=== PATIENT | female | born 1940 | race Caucasian/White ===

== ENCOUNTER 2019-02-17 12:29 | Emergency (ER) | payer MEDICARE, OTHER ==
--- NOTE | 2019-02-17 13:23 | RAD ---
LEFT KNEE FOUR VIEWS: HISTORY: Left knee pain. FINDINGS: Degenerative changes are present. No acute fracture, dislocation or bony destruction is identified. POS: OFF
--- NOTE | 2019-02-17 13:25 | RAD ---
Left wrist 3 views HISTORY: Fall. Left wrist injury. FINDINGS: There is three-quarter shaft width posterior displacement of the distal major fragment of a n extremely comminuted multi part distal radial fracture. Resultant dorsal tilt. Significant impaction. Loss of inclination. Intra-articular component to the distal radius with 3 mm distraction of fragments. Mildly displaced oblique fracture through the medial margin of the distal ulna, including the ulnar styloid. Scaphoid waist is intact. Mild degenerative changes of the distal carpal row. IMPRESSION: Comminuted intra-articular distal left radial fracture with dorsal tilt. Associated dista l ulnar fracture.
--- NOTE | 2019-02-17 14:10 | CT ---
Exam: Head CT without contrast HISTORY: Pain. Trauma. COMPARISON: none FINDINGS: Hemorrhage: No intraparenchymal hemorrhage or extra-axial hematoma. Brain parenchyma: Cortical vela-white matter differentiation is preserved. No mass effect or midline shift. Basilar cisterns are patent.White matter hypodensities due to chronic small vessel ischemic change. Ventricular system: Ventricles and sulci are patent and symmetric. Calvarium: Intact. Sinuses and mastoid air cells: Minimal opacification posterior left ethmoid air cell. Adequate mastoi d air cell aeration. IMPRESSION: 1. No intracranial post traumatic sequelae 2. Age-appropriate atrophy. White matter hypodensities due to chronic small vessel ischemic change
--- NOTE | 2019-02-17 14:21 | CT ---
CT CERVICAL SPINE WITHOUT CONTRAST: HISTORY: Neck pain status post fall. FINDINGS: The bones appear demineralized. There is severe degenerative disk narrowing at C4-C5, C5-C6 and C6-C7 . There are also moderate degenerative facet changes present. There is a mild degree of right-sided f oraminal narrowing at C3-C4 and at C4-C5. The canal is mildly stenotic at C5-C6 with mild right-sided foraminal narrowing. There is also mild canal stenosis at C6-C7. There is no CT evidence for fractur e. The lung apices are clear. IMPRESSION: No CT evidence of fracture of the cervical spine. POS: OFF
[2019-02-17] MEDS ORDERED: Ketamine 50 MG/ML (10ML VIAL) ONE (16:23)
--- NOTE | 2019-02-17 17:22 | RAD ---
XR Wrist Lt 2 View History: Postreduction Comparison: Radiograph same day Findings: Satisfactory alignment postreduction intra-articular distal radius fracture and ulnar fract ure. Impression: Satisfactory alignment postreduction
[2019-02-17] MEDS ORDERED: Acetaminophen 500 MG TAB ONE (17:49)
== END 2019-02-17 18:24 | disposition home or self-care (01) ==
LOC: ERS 12:29
DX: S52.572A Other intraarticular fracture of lower end of left radius, initial encounter for closed fracture (principal); I11.0 Hypertensive heart disease with heart failure; I50.9 Heart failure, unspecified; Z87.891 Personal history of nicotine dependence; Z79.899 Other long term (current) drug therapy; Z79.51 Long term (current) use of inhaled steroids; W19.XXXA Unspecified fall, initial encounter
CPT/HCPCS: 25605; 70450; 72125; 93005; 99156

== ENCOUNTER 2019-02-26 10:39 | Day surgery (SDC) | payer MEDICARE, OTHER ==
[2019-02-26] MEDS ORDERED: Fentanyl 100 MCG/2 ML VIAL ONE ×3 (12:26→13:05)
[2019-02-26] MEDS ORDERED: Midazolam HCl 2 mg/2 ml Vial ONE (13:05)
--- NOTE | 2019-02-26 14:35 | RAD ---
EXAM: 2 views of the left wrist HISTORY: Left distal radius fracture status post ORIF COMPARISON: 02/17/2019 FINDINGS: 2 limited intraoperative fluoroscopic views of the left wrist shows the patient is status p ost ORIF of the distal radius fracture with a plate and screws. There is better alignment of the wrist joint. IMPRESSION: Status post ORIF of distal radius fracture without evidence of complication.
--- NOTE | 2019-02-26 17:57 | OP ---
DATE OF PROCEDURE: 02/26/2019 PREOPERATIVE DIAGNOSIS: Left comminuted intra-articular distal radius fracture (greater than three fragments). POSTOPERATIVE DIAGNOSIS: Left comminuted intra-articular distal radius fracture (greater than three fragments). SURGICAL PROCEDURE: Open reduction and internal fixation of left distal radius. ANESTHESIA: General. GROUP CARE WORKER: Shubham Chahal PA-C TOURNIQUET TIME: Approximately 50 minutes at 250 mmHg. IMPLANTS: Synthes 2.4 mm variable angle LCP 2 column volar distal radial plate. COMPLICATIONS: None. DRAINS: None. SPECIMEN: None. OUTCOME: Near-anatomic alignment. INDICATIONS: Ms. Garcia is a pleasant 78-year-old lady, status post ground level fall landing on her outstretched left wrist sustaining a comminuted and intra-articular distal radius fracture. Given the intra-articular extension and the dorsal comminution, we have discussed the potential benefits of open reduction and internal fixation to lessen any chance of articular surface incongruity or displacement of fracture. The patient appears to understand and does wish to proceed. Informed consent has been obtained. DESCRIPTION OF PROCEDURE: The patient was brought to the operating room after induction of regional anesthesia. Next, a sterile prep and drape were performed in the left upper extremity. The limb was then exsanguinated with Esmarch bandage and tourniquet inflated to 250 mmHg. Next, a volar radial incision was made at the distal radius. This was followed by blunt dissection between the tendons of the brachioradialis and the flexor carpi radialis. Next, the dissection was carried down to the level of the pronator quadratus. This was released off the radial border of the radius and reflected to the midline. At this point, the fracture could be identified. A curette was used to remove some of the fracture hematoma. Next, an open reduction was performed with the fracture achieving a near-anatomic alignment as checked on both AP and lateral C-arm imaging. Next, a volar two column Synthes plate was applied to the volar aspect of the wrist. This was held in place with a K-wire and then a cortical screw placed in the longitudinal limb of the plate affixing the plate to the distal radius. Again, C-arm imaging was used to confirm appropriate alignment of the plate. Next, a total of 4 locking screws were placed through the horizontal limb of the plate capturing the distal fragment in a near-anatomic alignment. This was then followed by insertion of two additional cortical screws proximal to the fracture. At the completion of this, final AP and lateral C-arm images were obtained that showed excellent alignment of the fracture and appropriate positioning of hardware. The wound was then irrigated with bulb syringe and closed in layers with 0 Vicryl for fascial closure followed by 2-0 Vicryl and nylon as a final skin closure. She was then placed in a short arm fiberglass splint and then, tourniquet was let down. She was transferred to recovery room in stable condition. There were no complications. She tolerated the procedure well. Job ID: [id number]
== END 2019-02-26 15:45 | disposition home or self-care (01) ==
LOC: SDC 10:39
PROVIDERS: ATTEND Orthopaedic Surgery
PROC: 0PSJ04Z Reposition Left Radius with Internal Fixation Device, Open Approach (ICD-10-PCS; principal; 2019-02-26)
PROC: 3E0T3BZ Introduction of Anesthetic Agent into Peripheral Nerves and Plexi, Percutaneous Approach (ICD-10-PCS; 2019-02-26)
DX: S52.572A Other intraarticular fracture of lower end of left radius, initial encounter for closed fracture (principal); I11.0 Hypertensive heart disease with heart failure; I50.9 Heart failure, unspecified; J44.9 Chronic obstructive pulmonary disease, unspecified; M19.90 Unspecified osteoarthritis, unspecified site; G89.18 Other acute postprocedural pain; Z79.899 Other long term (current) drug therapy; Z88.2 Allergy status to sulfonamides; Z88.5 Allergy status to narcotic agent; W18.30XA Fall on same level, unspecified, initial encounter; X50.1XXA Overexertion from prolonged static or awkward postures, initial encounter
CPT/HCPCS: 76000; 93005; 93010; J0690; J2250; J3010

== ENCOUNTER 2020-04-22 20:38 | Emergency (ER) | payer MEDICARE, OTHER ==
--- NOTE | 2020-04-22 22:02 | RAD ---
Chest one view HISTORY: Dyspnea. COVID pneumonia. COMPARISON: 12/23/2019. FINDINGS: Cardiac silhouette is magnified by projection. Pulmonary vasculature is unremarkable. Mediastinum is midline with aortic calcification. Dystrophic calcification running obliquely across t he medial aspect of the right upper mediastinum is unchanged. No lobar consolidation or evidence of pneumothorax. IMPRESSION : Atherosclerosis. Chronic-type findings are stable. No active cardiopulmonary abnormalities are demonstrated.
[2020-04-22 22:07] LABS: Hemoglobin 11.2 g/dL (12.0-16.0); Mean Corpuscular HGB CONC 31.5 g/dL (32.0-36.0); Mean Corpuscular Hemoglobin 27.3 pg (27.0-31.0); Mean Corpuscular Volume 86.8 fL (78.0-98.0); Mean Platelet Volume 8.2 fL (7.4-10.4); Platelet Count 175 thou/uL (130-400); RBC Distribution Width 13.2 % (11.5-14.5); Red Blood Cell (RBC) Count 4.12 mill/uL (4.20-5.40); White Blood Cell (WBC) Count 6.6 thou/uL (4.8-10.8)
[2020-04-22 22:25] LABS: Band 8 % (5-11); Hypochromia SLIGHT = 6-15 cells (100X) (0-5/hpf); Lymphocytes 13 % (21-51); MDiff Complete? YES; Monocytes 17 % (0-10); Neutrophil 62 % (42-75); Platelet Morphology Comment Appears Adequate
[2020-04-22 22:28] LABS: ALT (SGPT) 32 U/L (8-55); AST (SGOT) 31 U/L (5-34); Albumin 3.6 g/dL (3.4-4.8); Alkaline Phosphatase 66 U/L (40-110); Anion Gap 13 mmol/L (10-20); BUN (Urea Nitrogen) 19 mg/dL (9.8-20.1); Bilirubin, Total 0.2 mg/dL (0.2-1.2); Calc. Creatinine Clearance 0 mL/min (70-130); Calcium 8.8 mg/dL (7.8-10.44); Carbon Dioxide 34 mmol/L (23-31); Chloride 100 mmol/L (98-107); Globulin 2.5 g/dL (2.4-3.5); Glucose 101 mg/dL (83-110); Potassium 3.6 mmol/L (3.5-5.1); Protein, Total 6.1 g/dL (6.0-8.3); Sodium 143 mmol/L (136-145)
== END 2020-04-22 23:23 | disposition home or self-care (01) ==
LOC: ERS 20:38
DX: R06.00 Dyspnea, unspecified (principal); I11.0 Hypertensive heart disease with heart failure; I50.9 Heart failure, unspecified; J44.9 Chronic obstructive pulmonary disease, unspecified
CPT/HCPCS: 71045; 80053; 83880; 84484; 85025; 93005

== ENCOUNTER 2020-08-18 09:38 | Outpatient (CLI) | payer MEDICARE, OTHER | END 2020-08-18 09:39 | disposition home or self-care (01) | LOC: BICRAD 09:38 | PROVIDERS: ATTEND Internal Medicine Critical Care Medicine | DX: R06.00 Dyspnea, unspecified (principal) | CPT/HCPCS: 71046 ==

== ENCOUNTER 2021-03-01 09:18 | Outpatient (CLI) | payer MEDICARE, OTHER | END 2021-03-01 09:19 | disposition home or self-care (01) | LOC: RAD 09:18 | PROVIDERS: ATTEND Internal Medicine Critical Care Medicine | DX: R06.00 Dyspnea, unspecified (principal) | CPT/HCPCS: 71046 ==

== ENCOUNTER 2021-03-09 17:00 | Outpatient (CLI) | payer MEDICARE, OTHER | END 2021-03-09 17:01 | disposition home or self-care (01) | LOC: SLEEPLAB 17:00 | PROVIDERS: ATTEND Internal Medicine Critical Care Medicine | DX: G47.33 Obstructive sleep apnea (adult) (pediatric) (principal); E66.9 Obesity, unspecified; R06.83 Snoring | CPT/HCPCS: 95806 ==

== ENCOUNTER 2021-04-18 09:27 | Inpatient (IN) | payer MEDICARE, OTHER ==
[2021-04-18 10:42] LABS: #Eosinphils 0.1 thou/uL (0.0-0.7); #Monocytes 1.1 thou/uL (0.11-0.59); %Basophils 0.1 % (0.0-1.0); %Eosinophils 0.6 % (0.0-10.0); %Lymphocytes 7.9 % (21.0-51.0); %Monocytes 8.6 % (0.0-10.0); %Neutrophils 82.8 % (42.0-75.0); Hemoglobin 11.9 g/dL (12.0-16.0); Mean Corpuscular HGB CONC 30.3 g/dL (32.0-36.0); Mean Corpuscular Hemoglobin 26.2 pg (27.0-31.0); Mean Corpuscular Volume 86.6 fL (78.0-98.0); Mean Platelet Volume 7.7 fL (7.4-10.4); Platelet Count 194 thou/uL (130-400); RBC Distribution Width 13.8 % (11.5-14.5); Red Blood Cell (RBC) Count 4.52 mill/uL (4.20-5.40); White Blood Cell (WBC) Count 13.3 thou/uL (4.8-10.8)
[2021-04-18 11:08] LABS: ALT (SGPT) 14 U/L (8-55); AST (SGOT) 16 U/L (5-34); Albumin 3.8 g/dL (3.4-4.8); Alkaline Phosphatase 59 U/L (40-110); Anion Gap 11 mmol/L (10-20); BUN (Urea Nitrogen) 15 mg/dL (9.8-20.1); Bilirubin, Total 0.4 mg/dL (0.2-1.2); CK (CPK) 97 U/L (29-168); Calc. Creatinine Clearance 0 mL/min (70-130); Calcium 9.4 mg/dL (7.8-10.44); Carbon Dioxide 36 mmol/L (23-31); Chloride 100 mmol/L (98-107); Globulin 2.7 g/dL (2.4-3.5); Glucose 88 mg/dL (83-110); Potassium 3.6 mmol/L (3.5-5.1); Protein, Total 6.5 g/dL (5.8-8.1); Sodium 143 mmol/L (136-145)
[2021-04-18] MEDS ORDERED: Albuterol Sulfate 2.5 mg/0.5 ml Neb ONE (14:55)
[2021-04-18] MEDS ORDERED: Albuterol Sulfate 1.25 MG/3 ML NEB ONE ×2 (14:58→19:24)
[2021-04-18] MEDS ORDERED: Acetaminophen 650 MG Suppository PR PRN (20:19)
[2021-04-18] MEDS ORDERED: Ondansetron PF 4 MG/2 ML Vial IVP PRN (20:19)
[2021-04-18] MEDS ORDERED: Ondansetron ODT 4 MG TAB PO PRN (20:19)
[2021-04-18] MEDS ORDERED: Albuterol Sulfate 2.5 mg/3 ml Neb NEB PRN (20:42)
[2021-04-18] MEDS: Montelukast Sodium 10 mg Tablet PO SCH (21:23)
[2021-04-18] MEDS: hydrALAZINE 25 MG TAB PO SCH (21:23)
[2021-04-18 21:36] VITALS: BMI 32.9
[2021-04-19] MEDS ORDERED: diphenhydrAMINE 25 MG CAP PO PRN (01:49)
[2021-04-19] MEDS ORDERED: hydrALAZINE 20 MG/ML VIAL SLOW IVP PRN (05:43)
[2021-04-19] MEDS: Budesonide 0.5 MG/2 ML NEB NEB SCH ×2 (06:45→19:03)
[2021-04-19] MEDS: hydrALAZINE 25 MG TAB PO SCH ×2 (08:33→20:59)
[2021-04-19] MEDS: Potassium Chloride 10 MEQ TAB PO SCH (08:33)
[2021-04-19] MEDS: Furosemide 20 MG TAB PO SCH (08:34)
[2021-04-19] MEDS: Enoxaparin Sodium 40 MG/0.4 ML SYRINGE SC SCH (08:34)
[2021-04-19] MEDS: Ascorbic Acid 500 mg Chewable Tablet PO SCH (08:43)
[2021-04-19] MEDS: Lisinopril 20 MG TAB PO SCH (08:44)
[2021-04-19] MEDS: Cyanocobalamin (Vitamin B-12) 1,000 MCG TAB PO SCH (08:44)
[2021-04-19] MEDS ORDERED: FLU VACC QS2021-22(65YR UP)/PF 240 MCG/0.7 ML SYRINGE IM ONE (09:00)
[2021-04-19] MEDS: Acetaminophen 325 MG TAB PO PRN ×2 (09:28→18:15)
[2021-04-19] MEDS: Modafinil 100 MG TAB PO SCH (11:14)
[2021-04-19 11:30] LABS: SARS-CoV-2 PCR by NAA Not Detected (NotDetected)
[2021-04-19] MEDS ORDERED: predniSONE 5 MG TAB PO SCH (13:00)
[2021-04-19] MEDS: Lidocaine 5% Patch TD SCH (16:35)
[2021-04-19 17:02] LABS: Bacteria/HPF None Seen HPF (None Seen); Bilirubin Negative (Negative); Blood, Urine Negative (Negative); Clarity Clear (Clear); Glucose, Urine (Dipstick) Normal (Negative); Ketone, Urine Negative (Negative); Leukocyte 25 Leu/uL (Negative); Nitrite Negative (Negative); Protein, Urine (Dipstick) Negative (Neg-Trace); RBC/HPF 0-3 HPF (0-3); Specific Gravity, Urine 1.019 (1.002-1.036); Urobilinogen Normal mg/dL (Less than 2); WBC/HPF 0-3 HPF (0-3)
[2021-04-19 17:05] LABS: Urine Culture Reflex No No
[2021-04-19] MEDS: Arformoterol 15 MCG/2 ML NEB NEB SCH (19:03)
[2021-04-19] MEDS: Montelukast Sodium 10 mg Tablet PO SCH (20:59)
[2021-04-20] MEDS: Transdermal Patch Removal TOP SCH (02:52)
[2021-04-20] MEDS: Arformoterol 15 MCG/2 ML NEB NEB SCH ×2 (07:12→19:46)
[2021-04-20] MEDS: Budesonide 0.5 MG/2 ML NEB NEB SCH ×2 (07:13→19:44)
[2021-04-20] MEDS: hydrALAZINE 25 MG TAB PO SCH ×2 (07:43→20:19)
[2021-04-20] MEDS: Potassium Chloride 10 MEQ TAB PO SCH (07:44)
[2021-04-20] MEDS: Furosemide 20 MG TAB PO SCH (07:44)
[2021-04-20] MEDS: Lisinopril 20 MG TAB PO SCH (07:44)
[2021-04-20] MEDS: Acetaminophen 325 MG TAB PO PRN ×2 (07:44→16:01)
[2021-04-20] MEDS: Ascorbic Acid 500 mg Chewable Tablet PO SCH (07:44)
[2021-04-20] MEDS: Cyanocobalamin (Vitamin B-12) 1,000 MCG TAB PO SCH (07:45)
[2021-04-20] MEDS: predniSONE 5 MG TAB PO SCH (07:45)
[2021-04-20] MEDS: Lidocaine 5% Patch TD SCH (07:46)
[2021-04-20] MEDS: Enoxaparin Sodium 40 MG/0.4 ML SYRINGE SC SCH (07:46)
[2021-04-20] MEDS: Polyethylene Glycol 3350 17 GM Packet PO PRN (08:37)
[2021-04-20] MEDS: Modafinil 100 MG TAB PO SCH (08:37)
[2021-04-20] MEDS: Montelukast Sodium 10 mg Tablet PO SCH (20:19)
[2021-04-21] MEDS: Transdermal Patch Removal TOP SCH (03:14)
[2021-04-21] MEDS: Acetaminophen 325 MG TAB PO PRN (06:59)
[2021-04-21 07:30] LABS: #Eosinphils 0.3 thou/uL (0.0-0.7); #Lymphocytes 1.3 thou/uL (1.20-3.40); #Monocytes 0.9 thou/uL (0.11-0.59); %Basophils 0.4 % (0.0-1.0); %Eosinophils 3.8 % (0.0-10.0); %Monocytes 12.2 % (0.0-10.0); %Neutrophils 66.8 % (42.0-75.0); Hemoglobin 10.4 g/dL (12.0-16.0); Mean Corpuscular HGB CONC 30.6 g/dL (32.0-36.0); Mean Corpuscular Hemoglobin 26.8 pg (27.0-31.0); Mean Corpuscular Volume 87.4 fL (78.0-98.0); Mean Platelet Volume 7.7 fL (7.4-10.4); Platelet Count 166 thou/uL (130-400); Red Blood Cell (RBC) Count 3.88 mill/uL (4.20-5.40); White Blood Cell (WBC) Count 7.4 thou/uL (4.8-10.8)
[2021-04-21 08:00] LABS: ALT (SGPT) 10 U/L (8-55); AST (SGOT) 13 U/L (5-34); Albumin 3.3 g/dL (3.4-4.8); Alkaline Phosphatase 48 U/L (40-110); Anion Gap 8 mmol/L (10-20); BUN (Urea Nitrogen) 15 mg/dL (9.8-20.1); Bilirubin, Total 0.3 mg/dL (0.2-1.2); Calc. Creatinine Clearance 85 mL/min (70-130); Calcium 8.9 mg/dL (7.8-10.44); Carbon Dioxide 37 mmol/L (23-31); Chloride 100 mmol/L (98-107); Globulin 2.5 g/dL (2.4-3.5); Glucose 95 mg/dL (83-110); Protein, Total 5.8 g/dL (5.8-8.1); Sodium 141 mmol/L (136-145)
[2021-04-21] MEDS: Budesonide 0.5 MG/2 ML NEB NEB SCH ×2 (09:07→19:33)
[2021-04-21] MEDS: Ascorbic Acid 500 mg Chewable Tablet PO SCH (09:11)
[2021-04-21] MEDS: Cyanocobalamin (Vitamin B-12) 1,000 MCG TAB PO SCH (09:11)
[2021-04-21] MEDS: Lisinopril 20 MG TAB PO SCH (09:11)
[2021-04-21] MEDS: predniSONE 5 MG TAB PO SCH (09:12)
[2021-04-21] MEDS: hydrALAZINE 25 MG TAB PO SCH ×2 (09:12→21:27)
[2021-04-21] MEDS: Furosemide 20 MG TAB PO SCH (09:12)
[2021-04-21] MEDS: Potassium Chloride 10 MEQ TAB PO SCH (09:12)
[2021-04-21] MEDS: Enoxaparin Sodium 40 MG/0.4 ML SYRINGE SC SCH (09:13)
[2021-04-21] MEDS: Arformoterol 15 MCG/2 ML NEB NEB SCH ×2 (09:26→19:32)
[2021-04-21] MEDS ORDERED: Iopamidol 370 76% 100 ML VIAL ONE (09:57)
[2021-04-21] MEDS: Modafinil 100 MG TAB PO SCH (11:34)
[2021-04-21] MEDS: Lidocaine 5% Patch TD SCH (15:14)
[2021-04-21] MEDS: Montelukast Sodium 10 mg Tablet PO SCH (21:28)
[2021-04-22] MEDS: Transdermal Patch Removal TOP SCH (03:45)
[2021-04-22] MEDS: Acetaminophen 325 MG TAB PO PRN (04:01)
[2021-04-22] MEDS: Arformoterol 15 MCG/2 ML NEB NEB SCH (06:53)
[2021-04-22] MEDS: Budesonide 0.5 MG/2 ML NEB NEB SCH (06:55)
[2021-04-22] MEDS: Potassium Chloride 10 MEQ TAB PO SCH (09:44)
[2021-04-22] MEDS: Enoxaparin Sodium 40 MG/0.4 ML SYRINGE SC SCH (09:44)
[2021-04-22] MEDS: Ascorbic Acid 500 mg Chewable Tablet PO SCH (09:47)
[2021-04-22] MEDS: predniSONE 5 MG TAB PO SCH (09:47)
[2021-04-22] MEDS: Cyanocobalamin (Vitamin B-12) 1,000 MCG TAB PO SCH (09:47)
[2021-04-22] MEDS: hydrALAZINE 25 MG TAB PO SCH ×2 (09:48→20:29)
[2021-04-22] MEDS: Modafinil 100 MG TAB PO SCH (09:48)
[2021-04-22] MEDS: Furosemide 20 MG TAB PO SCH (09:48)
[2021-04-22] MEDS: Lisinopril 20 MG TAB PO SCH (09:48)
[2021-04-22] MEDS: Lidocaine 5% Patch TD SCH (13:42)
[2021-04-22] MEDS: Montelukast Sodium 10 mg Tablet PO SCH (20:29)
[2021-04-23] MEDS: Arformoterol 15 MCG/2 ML NEB NEB SCH ×2 (01:07→06:46)
[2021-04-23] MEDS: Budesonide 0.5 MG/2 ML NEB NEB SCH ×2 (01:08→06:46)
[2021-04-23] MEDS: Transdermal Patch Removal TOP SCH (02:02)
[2021-04-23] MEDS: Acetaminophen 325 MG TAB PO PRN (02:02)
[2021-04-23] MEDS: hydrALAZINE 25 MG TAB PO SCH (09:10)
[2021-04-23] MEDS: predniSONE 5 MG TAB PO SCH (09:10)
[2021-04-23] MEDS: Ascorbic Acid 500 mg Chewable Tablet PO SCH (09:10)
[2021-04-23] MEDS: Cyanocobalamin (Vitamin B-12) 1,000 MCG TAB PO SCH (09:10)
[2021-04-23] MEDS: Furosemide 20 MG TAB PO SCH (09:11)
[2021-04-23] MEDS: Potassium Chloride 10 MEQ TAB PO SCH (09:11)
[2021-04-23] MEDS: Lisinopril 20 MG TAB PO SCH (09:11)
[2021-04-23] MEDS: Modafinil 100 MG TAB PO SCH (09:12)
[2021-04-23] MEDS: Enoxaparin Sodium 40 MG/0.4 ML SYRINGE SC SCH (09:13)
[2021-04-23] MEDS: Polyethylene Glycol 3350 17 GM Packet PO PRN (10:34)
[2021-04-23] MEDS: Lidocaine 5% Patch TD SCH (12:14)
[2021-04-23 16:31] VITALS: BP 119/71; TEMP 98.3
== END 2021-04-23 17:20 | DRG 552 ==
LOC: ERS 09:27 → INTOOBSV 19:50 → SURG B 19:50 → OBSVTOIN 04-20 15:45
PROVIDERS: ADMIT Family Medicine; ATTEND Family Medicine
DX: M48.061 Spinal stenosis, lumbar region without neurogenic claudication (principal); I50.22 Chronic systolic (congestive) heart failure; J96.11 Chronic respiratory failure with hypoxia; M70.71 Other bursitis of hip, right hip; Z20.822 Contact with and (suspected) exposure to COVID-19; Z66 Do not resuscitate; J44.9 Chronic obstructive pulmonary disease, unspecified; F41.9 Anxiety disorder, unspecified; F32.A Depression, unspecified; I10 Essential (primary) hypertension; G47.33 Obstructive sleep apnea (adult) (pediatric); R29.6 Repeated falls; H40.9 Unspecified glaucoma; M48.02 Spinal stenosis, cervical region; D17.79 Benign lipomatous neoplasm of other sites; K59.00 Constipation, unspecified; Z88.5 Allergy status to narcotic agent; Z88.2 Allergy status to sulfonamides; Z79.51 Long term (current) use of inhaled steroids; Z79.899 Other long term (current) drug therapy; Z99.81 Dependence on supplemental oxygen; Z87.440 Personal history of urinary (tract) infections; Z87.891 Personal history of nicotine dependence; Z98.890 Other specified postprocedural states
CPT/HCPCS: 36415; 70450; 71045; 72100; 72125; 72131; 72141; 72148; 74170; 80053; 81001; 82550; 85025; 87040; 96372; G0378; J1650; J7512; J7611; J7620; J7626; Q9967; U0003; U0005

== ENCOUNTER 2021-05-17 09:08 | Emergency (ER) | payer MEDICARE, OTHER ==
[2021-05-17 11:01] LABS: #Eosinphils 0.4 thou/uL (0.0-0.7); #Lymphocytes 1.5 thou/uL (1.20-3.40); #Monocytes 0.8 thou/uL (0.11-0.59); #Neutrophils 4.5 thou/uL (1.40-6.50); %Basophils 0.4 % (0.0-1.0); %Eosinophils 5.8 % (0.0-10.0); %Lymphocytes 20.2 % (21.0-51.0); %Monocytes 11.4 % (0.0-10.0); %Neutrophils 62.2 % (42.0-75.0); Hemoglobin 11.2 g/dL (12.0-16.0); Mean Corpuscular Hemoglobin 27.6 pg (27.0-31.0); Mean Platelet Volume 7.2 fL (7.4-10.4); Platelet Count 202 thou/uL (130-400); RBC Distribution Width 14.1 % (11.5-14.5); Red Blood Cell (RBC) Count 4.07 mill/uL (4.20-5.40); White Blood Cell (WBC) Count 7.2 thou/uL (4.8-10.8)
[2021-05-17 11:20] LABS: Acetaminophen Less than 6.0 mcg/mL (10.0-30.0); Alcohol Less than 10 mg/dL (Less than 10); Salicylate Less than 8.0 mg/dL (15.0-30.0)
[2021-05-17 11:21] LABS: ALT (SGPT) 9 U/L (8-55); AST (SGOT) 13 U/L (5-34); Albumin 3.7 g/dL (3.4-4.8); Alkaline Phosphatase 90 U/L (40-110); Anion Gap 11 mmol/L (10-20); BUN (Urea Nitrogen) 16 mg/dL (9.8-20.1); Bilirubin, Total 0.3 mg/dL (0.2-1.2); Calc. Creatinine Clearance 0 mL/min (70-130); Calcium 9.6 mg/dL (7.8-10.44); Carbon Dioxide 32 mmol/L (23-31); Chloride 102 mmol/L (98-107); Globulin 2.6 g/dL (2.4-3.5); Glucose 87 mg/dL (83-110); Potassium 3.8 mmol/L (3.5-5.1); Protein, Total 6.3 g/dL (5.8-8.1); Sodium 141 mmol/L (136-145)
[2021-05-17 13:11] LABS: Amphetamine Not Detected (NotDetected); Barbiturates Screen Not Detected (NotDetected); Benzodiazepine Screen Not Detected (NotDetected); Cocaine Metabolite Screen Not Detected (NotDetected); Methadone Not Detected (NotDetected); Methamphetamine Not Detected (NotDetected); Opiate Screen Not Detected (NotDetected); Oxycodone Screen Not Detected (NotDetected); Phencyclidine (PCP) Not Detected (NotDetected); THC/Cannabinoid Screen Not Detected (NotDetected); Tricyclic Screen Detected (NotDetected)
== END 2021-05-17 12:53 | disposition home or self-care (01) ==
LOC: ERS 09:08
DX: T48.1X1A Poisoning by skeletal muscle relaxants [neuromuscular blocking agents], accidental (unintentional), initial encounter (principal); I11.0 Hypertensive heart disease with heart failure; I50.9 Heart failure, unspecified; J44.9 Chronic obstructive pulmonary disease, unspecified; Z87.891 Personal history of nicotine dependence
CPT/HCPCS: 36415; 80053; 80306; 80307; 85025; 93005

== ENCOUNTER 2022-04-13 05:51 | Inpatient (IN) | payer MEDICARE, OTHER ==
[2022-04-13] MEDS ORDERED: Albuterol Sulfate 2.5 mg/3 ml Neb ONE (06:19)
[2022-04-13] MEDS ORDERED: Albuterol Sulfate 2.5 mg/0.5 ml Neb ONE (06:19)
[2022-04-13] MEDS ORDERED: Dexamethasone 10 MG/ML VIAL ONE (06:23)
[2022-04-13] MEDS ORDERED: Magnesium 2 GM/50 ML BAG (IN WATER) ONE (06:23)
[2022-04-13 06:47] LABS: #Eosinphils 0.1 thou/uL (0.0-0.7); #Monocytes 1.9 thou/uL (0.11-0.59); #Neutrophils 14.2 thou/uL (1.40-6.50); %Eosinophils 0.3 % (0.0-10.0); %Neutrophils 82.7 % (42.0-75.0); Hemoglobin 11.3 g/dL (12.0-16.0); Mean Corpuscular HGB CONC 30.2 g/dL (32.0-36.0); Mean Corpuscular Hemoglobin 26.8 pg (27.0-31.0); Mean Corpuscular Volume 88.6 fl (78.0-98.0); Mean Platelet Volume 8.5 fL (7.4-10.4); Platelet Count 235 10x3/uL (130-400); RBC Distribution Width 13.6 % (11.5-14.5); Red Blood Cell (RBC) Count 4.24 mill/uL (4.20-5.40); White Blood Cell (WBC) Count 17.2 10x3/uL (4.8-10.8)
[2022-04-13 07:05] LABS: ALT (SGPT) 11 U/L (8-55); AST (SGOT) 16 U/L (5-34); Alkaline Phosphatase 57 U/L (40-110); Anion Gap 10 mmol/L (10-20); BUN (Urea Nitrogen) 14 mg/dL (9.8-20.1); Bilirubin, Total 0.4 mg/dL (0.2-1.2); Calc. Creatinine Clearance 0 mL/min (70-130); Calcium 8.7 mg/dL (7.8-10.44); Carbon Dioxide 36 mmol/L (23-31); Chloride 97 mmol/L (98-107); Estimated GFR 87; Globulin 2.2 g/dL (2.4-3.5); Glucose 117 mg/dL (83-110); Lipase 9 U/L (8-78); Potassium 3.3 mmol/L (3.5-5.1); Protein, Total 6.2 g/dL (5.8-8.1); Sodium 140 mmol/L (136-145)
[2022-04-13 07:38] LABS: CKMB 1.1 ng/mL (0-6.6)
[2022-04-13 07:56] LABS: SARS-CoV-2 NAA Rapid Test Not Detected (NotDetected)
[2022-04-13] MEDS ORDERED: Valsartan 80 MG TAB PO SCH (08:45)
[2022-04-13] MEDS ORDERED: hydrALAZINE 10 MG TAB PO SCH (08:45)
[2022-04-13] MEDS ORDERED: Hydrochlorothiazide 25 MG TAB PO SCH (08:45)
[2022-04-13] MEDS ORDERED: Acetaminophen 325 MG TAB PO PRN (10:25)
[2022-04-13] MEDS ORDERED: Senokot S 8.6-50 MG TAB PO PRN (10:25)
[2022-04-13] MEDS ORDERED: Ondansetron PF 4 MG/2 ML Vial IVP PRN (10:25)
[2022-04-13 10:44] VITALS: BMI 34.4
[2022-04-13] MEDS: Cefepime 1 GM in Sodium Chloride 0.9% 100 ML IVPB SCH ×2 (13:30→23:08)
[2022-04-13] MEDS: methylPREDNISolone Sod Succ 40 MG VIAL IVP SCH ×3 (13:30→23:08)
[2022-04-13] MEDS: Vancomycin 1.5 GRAM/300 ML BAG 1.5 GM in Premix Bag 1 BAG IVPB SCH (13:30)
[2022-04-13] MEDS: Mometasone/Formoterol 200/5 60 PUFF INH SCH (18:49)
[2022-04-13] MEDS: Montelukast Sodium 10 mg Tablet PO SCH (20:15)
[2022-04-13] MEDS: Guaifenesin DM 100-10/5 ML UDCUP PO PRN (20:24)
[2022-04-14 04:22] LABS: #Basophils 0.1 thou/uL (0.0-0.2); #Lymphocytes 0.6 thou/uL (1.20-3.40); #Monocytes 0.3 thou/uL (0.11-0.59); #Neutrophils 9.1 thou/uL (1.40-6.50); %Basophils 0.7 % (0.0-1.0); %Eosinophils 0.2 % (0.0-10.0); %Neutrophils 90.2 % (42.0-75.0); Hemoglobin 11.1 g/dL (12.0-16.0); Mean Corpuscular HGB CONC 30.8 g/dL (32.0-36.0); Mean Corpuscular Hemoglobin 26.9 pg (27.0-31.0); Mean Corpuscular Volume 87.2 fl (78.0-98.0); Mean Platelet Volume 8.9 fL (7.4-10.4); Platelet Count 184 10x3/uL (130-400); RBC Distribution Width 13.5 % (11.5-14.5); Red Blood Cell (RBC) Count 4.13 mill/uL (4.20-5.40); White Blood Cell (WBC) Count 10.1 10x3/uL (4.8-10.8)
[2022-04-14 04:51] LABS: Anion Gap 12 mmol/L (10-20); BUN (Urea Nitrogen) 14 mg/dL (9.8-20.1); Calc. Creatinine Clearance 96 mL/min (70-130); Calcium 8.6 mg/dL (7.8-10.44); Carbon Dioxide 32 mmol/L (23-31); Chloride 98 mmol/L (98-107); Estimated GFR 88; Glucose 155 mg/dL (83-110); Potassium 3.4 mmol/L (3.5-5.1); Sodium 139 mmol/L (136-145)
[2022-04-14] MEDS: methylPREDNISolone Sod Succ 40 MG VIAL IVP SCH ×4 (05:36→23:53)
[2022-04-14] MEDS: Mometasone/Formoterol 200/5 60 PUFF INH SCH ×2 (06:57→18:41)
[2022-04-14] MEDS: Ascorbic Acid 500 mg Chewable Tablet PO SCH (09:57)
[2022-04-14] MEDS: Cyanocobalamin (Vitamin B-12) 1,000 MCG TAB PO SCH (09:58)
[2022-04-14] MEDS: Sertraline 25 MG TAB PO SCH (09:58)
[2022-04-14] MEDS: Enoxaparin Sodium 40 MG/0.4 ML SYRINGE SC SCH (09:58)
[2022-04-14] MEDS: Cefepime 1 GM in Sodium Chloride 0.9% 100 ML IVPB SCH ×2 (14:42→23:53)
[2022-04-14] MEDS: Vancomycin 1.5 GRAM/300 ML BAG 1.5 GM in Premix Bag 1 BAG IVPB SCH (14:43)
[2022-04-14] MEDS: Montelukast Sodium 10 mg Tablet PO SCH (20:27)
[2022-04-14] MEDS: Guaifenesin DM 100-10/5 ML UDCUP PO PRN (23:58)
[2022-04-15] MEDS: Guaifenesin DM 100-10/5 ML UDCUP PO PRN ×2 (05:57→18:22)
[2022-04-15] MEDS: methylPREDNISolone Sod Succ 40 MG VIAL IVP SCH ×3 (05:57→22:04)
[2022-04-15 07:03] LABS: #Basophils 0.1 thou/uL (0.0-0.2); #Lymphocytes 0.6 thou/uL (1.20-3.40); #Monocytes 0.5 thou/uL (0.11-0.59); #Neutrophils 10.5 thou/uL (1.40-6.50); %Basophils 0.8 % (0.0-1.0); %Eosinophils 0.1 % (0.0-10.0); %Lymphocytes 4.9 % (21.0-51.0); %Monocytes 4.6 % (0.0-10.0); %Neutrophils 89.7 % (42.0-75.0); Hemoglobin 10.7 g/dL (12.0-16.0); Mean Corpuscular HGB CONC 31.5 g/dL (32.0-36.0); Mean Corpuscular Hemoglobin 27.4 pg (27.0-31.0); Mean Platelet Volume 8.5 fL (7.4-10.4); Platelet Count 223 10x3/uL (130-400); RBC Distribution Width 13.6 % (11.5-14.5); Red Blood Cell (RBC) Count 3.89 mill/uL (4.20-5.40); White Blood Cell (WBC) Count 11.7 10x3/uL (4.8-10.8)
[2022-04-15 07:28] LABS: Anion Gap 10 mmol/L (10-20); BUN (Urea Nitrogen) 28 mg/dL (9.8-20.1); Calc. Creatinine Clearance 86 mL/min (70-130); Calcium 8.6 mg/dL (7.8-10.44); Carbon Dioxide 34 mmol/L (23-31); Chloride 102 mmol/L (98-107); Estimated GFR 82; Glucose 150 mg/dL (83-110); Magnesium 2.8 mg/dL (1.6-2.6); Potassium 3.7 mmol/L (3.5-5.1); Sodium 142 mmol/L (136-145)
[2022-04-15] MEDS: Mometasone/Formoterol 200/5 60 PUFF INH SCH ×2 (08:12→19:37)
[2022-04-15] MEDS: Ascorbic Acid 500 mg Chewable Tablet PO SCH (09:04)
[2022-04-15] MEDS: Cyanocobalamin (Vitamin B-12) 1,000 MCG TAB PO SCH (09:05)
[2022-04-15] MEDS: Sertraline 25 MG TAB PO SCH (09:05)
[2022-04-15] MEDS: Enoxaparin Sodium 40 MG/0.4 ML SYRINGE SC SCH (09:05)
[2022-04-15] MEDS: Cefepime 1 GM in Sodium Chloride 0.9% 100 ML IVPB SCH (11:36)
[2022-04-15] MEDS: Vancomycin 1.5 GRAM/300 ML BAG 1.5 GM in Premix Bag 1 BAG IVPB SCH (11:37)
[2022-04-15 12:52] LABS: Vancomycin, Trough 8.3 ug/mL
[2022-04-15] MEDS: Montelukast Sodium 10 mg Tablet PO SCH (22:02)
[2022-04-16] MEDS: Cefepime 1 GM in Sodium Chloride 0.9% 100 ML IVPB SCH ×2 (00:18→11:33)
[2022-04-16] MEDS: Guaifenesin DM 100-10/5 ML UDCUP PO PRN (04:03)
[2022-04-16 05:08] LABS: #Lymphocytes 0.6 thou/uL (1.20-3.40); #Monocytes 0.5 thou/uL (0.11-0.59); #Neutrophils 8.4 thou/uL (1.40-6.50); %Eosinophils 0.4 % (0.0-10.0); %Monocytes 5.7 % (0.0-10.0); %Neutrophils 87.9 % (42.0-75.0); Hemoglobin 10.4 g/dL (12.0-16.0); Mean Corpuscular HGB CONC 30.7 g/dL (32.0-36.0); Mean Corpuscular Hemoglobin 27.1 pg (27.0-31.0); Mean Corpuscular Volume 88.3 fl (78.0-98.0); Mean Platelet Volume 8.5 fL (7.4-10.4); Platelet Count 207 10x3/uL (130-400); RBC Distribution Width 13.7 % (11.5-14.5); Red Blood Cell (RBC) Count 3.85 mill/uL (4.20-5.40); White Blood Cell (WBC) Count 9.5 10x3/uL (4.8-10.8)
[2022-04-16 05:28] LABS: Anion Gap 10 mmol/L (10-20); BUN (Urea Nitrogen) 31 mg/dL (9.8-20.1); Calc. Creatinine Clearance 88 mL/min (70-130); Carbon Dioxide 34 mmol/L (23-31); Chloride 102 mmol/L (98-107); Sodium 142 mmol/L (136-145)
[2022-04-16 05:29] LABS: Calcium 8.7 mg/dL (7.8-10.44); Estimated GFR 85; Glucose 147 mg/dL (83-110); Magnesium 2.8 mg/dL (1.6-2.6)
[2022-04-16] MEDS: methylPREDNISolone Sod Succ 40 MG VIAL IVP SCH ×2 (06:24→21:44)
[2022-04-16] MEDS: Mometasone/Formoterol 200/5 60 PUFF INH SCH ×2 (07:51→18:38)
[2022-04-16] MEDS: Enoxaparin Sodium 40 MG/0.4 ML SYRINGE SC SCH (08:51)
[2022-04-16] MEDS: Cyanocobalamin (Vitamin B-12) 1,000 MCG TAB PO SCH (08:51)
[2022-04-16] MEDS: Sertraline 25 MG TAB PO SCH (08:51)
[2022-04-16] MEDS: Ascorbic Acid 500 mg Chewable Tablet PO SCH (08:51)
[2022-04-16] MEDS ORDERED: Hydrochlorothiazide 25 MG TAB PO SCH (13:30)
[2022-04-16] MEDS ORDERED: Valsartan 80 MG TAB PO SCH (13:30)
[2022-04-16] MEDS: Montelukast Sodium 10 mg Tablet PO SCH (21:42)
[2022-04-17] MEDS: Cefepime 2 GM in Sodium Chloride 0.9% 100 ML IVPB SCH ×2 (00:55→11:56)
[2022-04-17] MEDS: Mometasone/Formoterol 200/5 60 PUFF INH SCH ×2 (07:49→19:22)
[2022-04-17] MEDS: Hydrochlorothiazide 25 MG TAB PO SCH (09:04)
[2022-04-17] MEDS: Ascorbic Acid 500 mg Chewable Tablet PO SCH (09:04)
[2022-04-17] MEDS: Cyanocobalamin (Vitamin B-12) 1,000 MCG TAB PO SCH (09:04)
[2022-04-17] MEDS: Enoxaparin Sodium 40 MG/0.4 ML SYRINGE SC SCH (09:04)
[2022-04-17] MEDS: Sertraline 25 MG TAB PO SCH (09:04)
[2022-04-17] MEDS: Valsartan 80 MG TAB PO SCH (09:05)
[2022-04-17] MEDS: methylPREDNISolone Sod Succ 40 MG VIAL IVP SCH ×3 (09:14→21:38)
[2022-04-17] MEDS ORDERED: Azithromycin 500 MG in Sodium Chloride 0.9% 250 ML 250 ML IVPB SCH (14:00)
[2022-04-17] MEDS: Montelukast Sodium 10 mg Tablet PO SCH (21:38)
[2022-04-18] MEDS: Cefepime 2 GM in Sodium Chloride 0.9% 100 ML IVPB SCH (00:57)
[2022-04-18] MEDS: Mometasone/Formoterol 200/5 60 PUFF INH SCH (06:51)
[2022-04-18 08:20] VITALS: TEMP 98.3
[2022-04-18] MEDS: Cyanocobalamin (Vitamin B-12) 1,000 MCG TAB PO SCH (09:10)
[2022-04-18] MEDS: Enoxaparin Sodium 40 MG/0.4 ML SYRINGE SC SCH (09:10)
[2022-04-18] MEDS: Ascorbic Acid 500 mg Chewable Tablet PO SCH (09:10)
[2022-04-18] MEDS: methylPREDNISolone Sod Succ 40 MG VIAL IVP SCH (09:10)
[2022-04-18] MEDS: Valsartan 80 MG TAB PO SCH (09:10)
[2022-04-18] MEDS: Hydrochlorothiazide 25 MG TAB PO SCH (09:11)
[2022-04-18] MEDS: Sertraline 25 MG TAB PO SCH (09:11)
[2022-04-18 11:22] VITALS: BP 162/83
== END 2022-04-18 11:23 | disposition home or self-care (01) | DRG 193 ==
LOC: ERS 05:51 → IMCU/EMU 08:19 → T4-A 04-14 16:31
PROVIDERS: ADMIT Internal Medicine; ATTEND Internal Medicine
PROC: 5A09457 Assistance with Respiratory Ventilation, 24-96 Consecutive Hours, Continuous Positive Airway Pressure (ICD-10-PCS; principal; 2022-04-14)
DX: J18.9 Pneumonia, unspecified organism (principal); J96.21 Acute and chronic respiratory failure with hypoxia; J44.1 Chronic obstructive pulmonary disease with (acute) exacerbation; J44.0 Chronic obstructive pulmonary disease with (acute) lower respiratory infection; I50.32 Chronic diastolic (congestive) heart failure; I5A Non-ischemic myocardial injury (non-traumatic); I11.0 Hypertensive heart disease with heart failure; Z66 Do not resuscitate; Z20.822 Contact with and (suspected) exposure to COVID-19; R13.10 Dysphagia, unspecified; Z88.6 Allergy status to analgesic agent; Z88.2 Allergy status to sulfonamides; Z79.899 Other long term (current) drug therapy; Z79.52 Long term (current) use of systemic steroids; Z90.89 Acquired absence of other organs; Z87.891 Personal history of nicotine dependence; Z80.1 Family history of malignant neoplasm of trachea, bronchus and lung; Z99.81 Dependence on supplemental oxygen
CPT/HCPCS: 36415; 71045; 74230; 80048; 80053; 80202; 82553; 83605; 83690; 83735; 83880; 84145; 84484; 85025; 87040; 93005; 94640; 94644; 94660; 96374; 96375; J0456; J0692; J1100; J1650; J1956; J2920; J3370; J3475; J3490; J7050; J7611; J7620

== ENCOUNTER 2022-06-04 11:14 | Outpatient (CLI) | payer MEDICARE, OTHER | END 2022-06-04 11:15 | disposition home or self-care (01) | LOC: RAD 11:14 | PROVIDERS: ATTEND Internal Medicine Critical Care Medicine | DX: R06.00 Dyspnea, unspecified (principal) | CPT/HCPCS: 71046 ==